=== PATIENT | female | born 1970 | race Caucasian/White ===

== ENCOUNTER 2022-12-17 18:30 | Emergency (ER) | payer OTHER ==
[~2022-12-17] VITALS: Ht 165.1 cm; Wt 68.0 kg
[2022-12-17 18:55] VITALS: BP 120/75; PULSE 85; RESP 18; TEMP 98; O2SAT 98
[2022-12-17] MEDS ORDERED: KETOROLAC 30 MG/ML VIAL IM ONE (20:15)
[2022-12-17] MEDS ORDERED: GABA300C PO (20:27)
[2022-12-17] MEDS ORDERED: NAPR-54 PO (20:27)
[2022-12-17] MEDS ORDERED: CYCL-711 PO (20:27)
[2022-12-17 20:40] VITALS: BP 120/75; PULSE 85; RESP 18; TEMP 98; O2SAT 98
--- NOTE | 2022-12-17 20:40 | NUR ---
Patient discharged with v/s stable. Written and verbal after care instructions given and explained. New rx flexeril, gabapentin, and naprosyn. Patient verbalized understanding. Ambulatory with steady gait. All questions addressed prior to discharge. Advised to follow up with PMD.
== END 2022-12-17 20:40 | disposition home or self-care (01) ==
LOC: MED 18:30
DX: M54.16 Radiculopathy, lumbar region (principal); M79.661 Pain in right lower leg; M79.662 Pain in left lower leg; R21 Rash and other nonspecific skin eruption; Z79.899 Other long term (current) drug therapy
CPT/HCPCS: 81025; 96372; 99283; J1885